=== PATIENT | male | born 1990 | race African-American/Black ===

== ENCOUNTER 2017-01-02 02:25 | Inpatient (IN) ==
[2017-01-02] MEDS ORDERED: cefTRIAXone 1,000 MG in SODIUM CHLORIDE 0.9% 100 ML IV STA (03:28)
--- NOTE | 2017-01-02 03:29 | Emergency Department Note ---
Junito Barreto Brittany, am scribing for, and in the presence of, Narda Glez DO 02:58. Newton Barreto Debra, DO, personally performed the services described in this documentation, ascribed by Nelly Wild in my presence, and it is both accurate and complete 329 . Arrival - Arrival Chief Complaint: Abscess Stated Complaint: bit by a spider ,swollen ED Nursing Triage Note: pt presented to triage ambulatory with limp with c/o possible spider bite to R thigh. also c/o fever x 1 day. pt denies drainage. redness and edema noted to R thigh Mode of Arrival: Ambulatory Limitations: No Limitations Source: Patient, RN Notes Reviewed Time Seen by Provider: 01/02/17 02:51 - History of Present Illness HPI Narrative: Mr. Cochran is a 26 y/o black male presenting to the ED with c/o abscess to the lateral right thigh with an onset of a day. Patient reports that he may have been bitten by a spider on his lateral right thigh. Over the course of the day he has began to have a fever, chills, and has noticed a redness and swelling to the right thigh. This area is tender and hot to touch. During triage patient was noted to have a fever of 101. He has no other complaint/pain. Onset (ago): day(s) (1) Consistency: constant Allergies/Adverse Reactions: Allergies Allergy/AdvReac Type Severity Reaction Status Date / Time No Known Allergies Allergy Verified 01/02/17 02:44 Review of System - Review of System 12 point system: reviewed and no additional remarkable complaints except as stated - Review of System Constitutional: Present: fever Eyes: Absent: vision change Head/Ears/Nose/Throat: Absent: nasal drainage, sore throat Respiratory: Absent: respiratory distress Cardiovascular: Absent: chest pain, palpitations Gastrointestinal: Absent: abdominal pain, nausea, vomiting, diarrhea, constipation Genitourinary male: Absent: urgency, dysuria, frequency Musculoskeletal: Absent: arm pain, back pain, leg pain, neck pain Skin: Present: as per HPI, lesions Neurological: Absent: headache Psychiatric: Absent: anxiety, depression Hematological/Lymphatic: Absent: easy bleeding, easy bruising Medical,Surgical,& Family Hx - Medical History Cardio: No history of: Cardiovascular Problems Psychological: No history of: Psychiatric Problems Neurology: No history of: Seizures, Neurological Problems Endocrine: No history of: Endocrine Problems Rheumatology: No history of;: Rheumatological Problems Respiratory: No history of: Respiratory Problems Genitourinary: History of: Problems Gastrointestinal: No history of: GI Problems Musculoskeletal: No history of: Musculoskeletal Problems Hematology: No history of: Blood Disorders Reproductive: 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) - Social History Smoking Status: Never smoker Frequency of Alcohol Use: None Type of Drug Use: None Exam Vital Signs: Vital Signs Temperature 100.1 F H 01/02/17 02:38 Pulse Rate 99 H 01/02/17 02:38 Respiratory Rate 18 01/02/17 02:38 Blood Pressure 119/65 01/02/17 02:38 O2 Sat by Pulse Oximetry 96 01/02/17 02:38 - General General appearance: alert, in no apparent distress - Head Head exam: Present: atraumatic, normocephalic, normal inspection - Eye Eye exam: Present: normal appearance, PERRL, EOMI - ENT ENT exam: Present: normal exam, normal oropharynx - Neck Neck exam: Present: normal inspection, full ROM, trachea midline - Chest Chest inspection: Present: normal inspection, symmetric chest wall rise - Respiratory Respiratory exam: Present: normal lung sounds bilaterally. Absent: rales, rhonchi, wheezes - Cardiovascular Cardiovascular exam: Present: regular rate, normal rhythm, normal heart sounds. Absent: murmur, rubs, gallop - Abdominal Exam Abdominal exam: Present: soft, normal bowel sounds. Absent: distention, tenderness - Extremities Exam Extremities exam: Present: full ROM, tenderness (lateral right thigh). Absent: normal inspection (palm sized area with surrounding erythema that is hot to touch noted to the lateral right thigh) - Back Exam Back exam: Present: normal inspection - Neurological Exam Neurological exam: Present: alert, oriented X3, CN II-XII intact. Absent: motor sensory deficit - Psychiatric Psychiatric exam: Present: normal affect, normal mood - Skin Skin exam: Present: warm, dry, other (palm sized area with surrounding erythema that is hot to touch noted to the lateral right thigh) Course Course Narrative: Dr Vaughan to admit Results - Labs CBC & BMP: 01/02/17 03:27 Lab Results: I have reviewed the patients labs Labs: Laboratory Tests 01/02/17 03:27 WBC 16.6 H RBC 5.14 Hgb 14.7 Hct 43.7 MCV 85.0 L Plt Count 241 Neut % (Auto) 80.2 H Lymph % (Auto) 9.8 L Neut # (Auto) 13.3 H Ziebach # (Auto) 1.4 H Disposition Clinical Impression: Abscess of skin or subcutaneous tissue Case discussed with: patient Disposition: Still a Patient Condition: Stable Time of Disposition: 04:42
[2017-01-02 03:51] LABS: Basophils # 0.1 10*3/uL (0.0-0.2); Basophils % 0.5 % (0.0-0.8); Eosinophils # 0.1 10*3/uL (0.0-0.87); Eosinophils % 0.5 % (0.00-10.9); Hematocrit 43.7 VOL% (42.0-52.0); Hemoglobin 14.7 GM/DL (14.0-18.0); Immature Granulocytes % 0.4 %; Immature Granulocytes Absolute 0.06 #; Lymphocytes # 1.6 10*3/uL (1.4-4.0); Lymphocytes % 9.8 % (21.2-54.2); Mean Corpuscular HGB Conc 33.6 GM/DL (32-36); Mean Corpuscular Hemoglobin 29 PG (27-34); Mean Platelet Volume 11.4 FL (9.6-12.0); Monocytes # 1.4 10*3/uL (0.11-0.8); Monocytes % 8.6 % (1.7-12.7); Neutrophils # 13.3 10*3/uL (1.4-7.4); Neutrophils % 80.2 % (38.7-73.9); Platelet Count 241 T/CUMM (130-400); Red Blood Count 5.14 MC/CUMM (3.8-5.5); Red Cell Distribution Width 12.6 % (9.3-17.3); White Blood Count 16.6 T/CUMM (4-12)
[2017-01-02] MEDS ORDERED: cefTRIAXone 1,000 MG VIAL ONE (03:54)
[2017-01-02] MEDS ORDERED: SODIUM CHLORIDE 0.9% 100 ML IV ONE (03:54)
--- NOTE | 2017-01-02 04:41 | Hospitalist History & Physical ---
Assessment and Plan (1) Cellulitis and abscess of right leg Status: Acute Assessment and plan: Our plan for this patient will be admission to the hospital with IV antibiotics. Need to follow-up on his chemistry that is not currently available. Patient's been started on Rocephin this should be adequate for this patient who has very limited health problems. Will consult a surgeon for further evaluation and possible I&D. Current Visit: Yes History of Present Illness Chief complaint: Swelling noted on thigh History of present illness: Mr. Cochran is a 26 year old male with no past medical history presents with chief complaint of abscess to right thigh. Patient reports that this also has been approximately 1 day. He recently moved and thinks that it was a spider bite. Began to have a fever noticed redness and swelling to the right thigh this evening. I was consulted to admit the patient to the emergency room. Patient reports that his son recently had an abscess that required drainage. Allergies Allergy/AdvReac Type Severity Reaction Status Date / Time No Known Allergies Allergy Verified 01/02/17 02:44 Medical,Surgical,& Family Hx - Medical History Cardio: No history of: Cardiovascular Problems Psychological: No history of: Psychiatric Problems Neurology: No history of: Seizures, Neurological Problems Endocrine: No history of: Endocrine Problems Rheumatology: No history of;: Rheumatological Problems Respiratory: No history of: Respiratory Problems Genitourinary: History of: Problems Gastrointestinal: No history of: GI Problems Musculoskeletal: No history of: Musculoskeletal Problems Hematology: No history of: Blood Disorders Reproductive: 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) - Surgical History Additional Surgical History: none - Family History Additional Family History: none - Social History Smoking Status: Never smoker Frequency of Alcohol Use: None Type of Drug Use: None 12 point system: reviewed and no additional remarkable complaints except as stated Exam - Constitutional Vitals: Period Temp Pulse Resp BP Sys/Pineda Pulse Ox Last 24 Hr 100.1 F-100.1 F 99-99 18-18 119-119/65-65 96 General appearance: normal weight - Head Head exam: Present: normal inspection - Eye Eye exam: Present: EOMI Pupils: Present: GENE - ENT ENT exam: Present: normal exam - Neck Neck exam: Present: normal inspection - Respiratory Respiratory exam: Present: clear to auscultation bilaterally - Cardiovascular Cardiovascular exam: Present: regular rate and rhythm - GI/Abdominal GI/Abdominal exam: Present: normal bowel sounds - Extremities Exam Extremities exam: Present: other (Patient has some erythema on the lateral aspect of his right thigh that is warm to touch) - Back Exam Back exam: Present: normal inspection - Neurological Exam Neurological exam: Present: alert, oriented X3 - Psychiatric Psychiatric exam: Present: normal affect, normal mood - Skin Skin exam: Present: normal color Results - Labs CBC & BMP: 01/02/17 03:27
[2017-01-02 04:46] LABS: Albumin 3.7 G/DL (3.4-5.0); Bilirubin,Total 0.7 MG/DL (0.2-1.0); Calcium 8.8 MG/DL (8.5-10.1); Osmolality,Calculated 274.8 MOS/KG (273-304); Potassium 4.4 MMOL/L (3.5-5.1); Total Protein 7.4 G/DL (6.4-8.3)
--- NOTE | 2017-01-02 09:04 | Event Note ---
Mr. Cochran is a 26 year old male with no past medical history admitted with the pain redness and swelling of right lateral thigh. He reported having symptoms started 2-3 days prior to admission. Started having fever last night prior to coming to the emergency room. He was started on IV antibiotics and is afebrile. He is on ceftriaxone which does not cover MRSA. Surgery consult was placed in the waiting recommendations. Since patient is afebrile now I would continue same antibiotics and wait for culture and sensitivity from the wound which was obtained according to patient. He had a white count elevated to 16.6. Repeat CBC for tomorrow is already in place.
--- NOTE | 2017-01-02 10:34 | General Surgery Consult Note ---
Assessment and Plan - Time spent with patient Time spent with patient: Greater than 30 minutes (1) Abscess of skin or subcutaneous tissue Status: Acute Assessment and plan: 01/02/2017 abscess right lateral thigh. He has significant tenderness and elevated white count. Plan to take him to the operating room today and do formal incision and drainage with excisional debridement. Of note, we recently treated the patient's 1-1/2-year-old son for MRSA abscess, so this is likely community-acquired MRSA. Current Visit: Yes History of Present Illness Chief complaint: Tender mass of right thigh History of present illness: Mr. Cochran is a 26 year old male Allergies Allergy/AdvReac Type Severity Reaction Status Date / Time No Known Allergies Allergy Verified 01/02/17 02:44 Medical,Surgical,& Family Hx - Medical History Cardio: No history of: Cardiovascular Problems Psychological: No history of: Psychiatric Problems Neurology: No history of: Seizures, Neurological Problems Endocrine: No history of: Endocrine Problems Rheumatology: No history of;: Rheumatological Problems Respiratory: No history of: Respiratory Problems Genitourinary: History of: Problems Gastrointestinal: No history of: GI Problems Musculoskeletal: No history of: Musculoskeletal Problems Hematology: No history of: Blood Disorders Reproductive: 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 His is present. ) - Head Head exam: Present: normal inspection - Eye Eye exam: Present: EOMI Pupils: Present: GENE - ENT ENT exam: Present: normal oropharynx Mouth exam: Present: normal voice, dry mucosa. Absent: oral lesion - Neck Neck exam: Present: trachea midline. Absent: lymphadenopathy, tenderness - Respiratory Respiratory exam: Present: clear to auscultation bilaterally - Cardiovascular Cardiovascular exam: Present: RRR - GI/Abdominal GI/Abdominal exam: Present: hypoactive bowel sounds, soft. Absent: distended, guarding, tenderness - Extremities Exam Extremities exam: Present: full ROM, other (Anterior, lateral right thigh with approximately 6-8 cm indurated area with a central focal 1-2 cm mass that is slightly fluctuant. Apparently this area had undergone attempted aspiration, and there is bloody drainage on his dressing, but I am unable to express any drainage with tender manipulation. It is erythematous about 10 cm centrally, ) . Absent: calf tenderness - Neurological Exam Neurological exam: Present: alert, oriented X3 Quality Measures - VTE Contraindication to Pharmacological VTE Prophylaxis: High Risk of Bleeding Results - Labs CBC & BMP: 01/02/17 03:27 01/02/17 04:06 Lab Results: I have reviewed the past 24 hour labs
[2017-01-02] MEDS ORDERED: BUPIVACAINE 0.25% 50 ML VIAL ONE (12:58)
[2017-01-02] MEDS ORDERED: PROPOFOL 200 MG/20 ML VIAL IV ONE (13:30)
[2017-01-02] MEDS ORDERED: ONDANSETRON 4 MG/2 ML VIAL ONE (13:30)
[2017-01-02] MEDS ORDERED: LIDOCAINE 1% 5 ML VIAL ONE (13:30)
[2017-01-02] MEDS ORDERED: fentaNYL 100 MCG/2 ML VIAL ONE (14:07)
[2017-01-02] MEDS ORDERED: MIDAZOLAM 2 MG/2 ML VIAL ONE (14:07)
[2017-01-02] MEDS ORDERED: ONDANSETRON 4 MG/2 ML VIAL IV PRN (14:16)
[2017-01-02] MEDS ORDERED: MEPERIDINE 25 MG/1 ML VIAL ONE (14:37)
[2017-01-02] MEDS ORDERED: MEPERIDINE 25 MG/1 ML VIAL IV PRN (14:39)
[2017-01-02] MEDS ORDERED: CHLORHEXIDINE 4% SOLN 118 ML BOTTLE TOP ONE (15:13)
--- NOTE | 2017-01-02 15:45 | Operative Note ---
Date of procedure: 01/02/17 Pre-op diagnosis: Abscess of right thigh Post-op diagnosis: same Procedure: Incision and drainage with excisional debridement of right thigh. Brief summary this 26-year-old male patient presented to the emergency room last evening after a 4 day history of tenderness and increased swelling of the right lateral thigh. He first noticed what he termed an insect bite on the anterior lateral aspect of the right thigh on evening. His main symptom that time was itching, however it rapidly began to become tender with increased pressure over the weekend. It became so uncomfortable he could not rest, and he presented to the emergency room, where attempted aspiration yielded apparently no fluid. He was at that point admitted, placed on IV antibiotics, and we were consulted. He was found to have an 8 x 9 cm indurated mass with focal erythematous change and a central fluctuant area of about 2-3 cm. Of note the patient's [id number] son was also noted to have had a recent I&D with drainage of abscess of the perineum by Dr. Pastrana approximately 2 weeks ago. This was reported as MRSA, and the child has recovered well without any complications. The father has been directly involved in the child's care, and this is a significant potential for transmitting the infection. After discussing the likelihood that this was a fluid accumulation with abscess and quite possibly MRSA, we offered surgical I&D with debridement, and the patient agreed. With the patient supine position and under general LMA anesthesia, the right anterior lateral thigh was prepped with Betadine and draped in sterile fashion. After formal timeout was obtained the skin around the mass area in approximately 6 x 6 cm field block was achieved using 1% lidocaine mixed half- and-half with 0.25% Marcaine. Purulent material spontaneously drained from the site of previous aspiration attempt. Once the area was infiltrated and incision was made approximately 2 cm onto the fluctuant area, we immediately encountered approximately 10 cc of purulent material. This drained easily from the abscess cavity, which did appear to go a bit deeper than was first realized. The area was swabbed for cultures aerobically and anaerobically. Hemostat was used to gently explore the area and widen it, and then the incision was then carried further down through the skin and subcu and fatty tissue, until we could see the vastus lateralis muscle. The muscle was not entered, just it identified as a landmark, and then explored digitally for deeper pocket. We found no deeper pocket and then began to sweep the entire length of the indurated area digitally. There were no deeper pockets felt at that point and we had explored the entire indurated diameter, we felt that the area had been adequately opened, and there was no deeper cavity found. Once we felt the area had been adequately drained, the cavity was then irrigated with approximately 200 mL of warm sterile saline, and then expect inspected for bleeding. There were a few areas of superficial bleeding in the subcu and fatty tissue, which were controlled easily with electrocautery. The area was again inspected for bleeding, in particular around the muscle area, and none was seen. We then took a post surgical measurement of the wound cavity which was now 4 cm x 1 cm x 2 cm in depth. Additional lidocaine mixed [id number] with Marcaine was used in the superficial and subcu for pain relief. At that point we took a Dakin's wet Kerlix fluff, soaked it with a good deal of the Dakin's material, and loosely packed into the cavity, approximately one half of the gauze, and then laid the remainder of the gauze over the top of the subcu and skin. A second Dakin's wet gauze was placed over this, followed by several bulky dry gauze this is secondary dressings, then an ABD pad, and was secured with a 6 inch Chandra bandage. No drains were left. Estimated blood loss was 10 cc. The patient was then taken to the recovery room in stable and satisfactory condition. There were no immediate complications. Anesthesia: other (LMA) Surgeon / Physician: Hallie Gates Estimated blood loss: other (10 mL) Specimens: other (Culture swabs) Condition: stable Disposition: PACU Results - Labs CBC & BMP: 01/02/17 03:27 01/02/17 04:06
[2017-01-02] MEDS: HYDROmorphone 2 MG/1 ML VIAL IV PRN ×2 (16:08→21:18)
[2017-01-02] MEDS: CLINDAMYCIN INJ 600 MG in PREMIX 1 EACH IV SCH ×2 (16:29→21:17)
--- NOTE | 2017-01-03 00:37 | Anesthesia Post-Op ---
Anesthesia Post OP - Post Ansesthetic Evaluation Patient seen in post op: Yes Resp: within normal limits CV: within normal limits Mental: within normal limits Temp: within normal limits [id number]: within normal limits Nausea and Vomiting: within normal limits Pain: within normal limits
[2017-01-03] MEDS: cefTRIAXone 1,000 MG in SODIUM CHLORIDE 0.9% 100 ML IV SCH (03:18)
[2017-01-03] MEDS: HYDROmorphone 2 MG/1 ML VIAL IV PRN ×2 (04:34→07:53)
[2017-01-03] MEDS: CLINDAMYCIN INJ 600 MG in PREMIX 1 EACH IV SCH ×3 (04:34→20:20)
[2017-01-03 04:46] LABS: Basophils # 0.1 10*3/uL (0.0-0.2); Basophils % 0.3 % (0.0-0.8); Eosinophils # 0.1 10*3/uL (0.0-0.87); Eosinophils % 0.3 % (0.00-10.9); Hematocrit 40.4 VOL% (42.0-52.0); Hemoglobin 13.1 GM/DL (14.0-18.0); Immature Granulocytes % 0.5 %; Immature Granulocytes Absolute 0.07 #; Lymphocytes # 2.5 10*3/uL (1.4-4.0); Lymphocytes % 16.4 % (21.2-54.2); Mean Corpuscular HGB Conc 32.4 GM/DL (32-36); Mean Corpuscular Hemoglobin 28 PG (27-34); Mean Corpuscular Volume 86.3 FL (87-102); Mean Platelet Volume 10.3 FL (9.6-12.0); Monocytes # 1.9 10*3/uL (0.11-0.8); Monocytes % 12.5 % (1.7-12.7); Neutrophils # 10.7 10*3/uL (1.4-7.4); Platelet Count 279 T/CUMM (130-400); Red Blood Count 4.68 MC/CUMM (3.8-5.5); Red Cell Distribution Width 12.5 % (9.3-17.3); White Blood Count 15.4 T/CUMM (4-12)
[2017-01-03 05:14] LABS: Calcium 8.4 MG/DL (8.5-10.1); Potassium 4.1 MMOL/L (3.5-5.1)
[2017-01-03 05:20] LABS: Albumin 3.3 G/DL (3.4-5.0); Bilirubin,Total 1.8 MG/DL (0.2-1.0); Calcium 8.6 MG/DL (8.5-10.1); Osmolality,Calculated 268.1 MOS/KG (273-304); Potassium 4.1 MMOL/L (3.5-5.1); Total Protein 6.8 G/DL (6.4-8.3)
[2017-01-03] MEDS: BACITRACIN OINT 0.9 GM PACK TOP SCH (10:08)
[2017-01-03] MEDS: SODIUM HYPOCHLORITE 0.25% IRRIG 473 ML BOTTLE TOP SCH (10:09)
--- NOTE | 2017-01-03 11:59 | General Surgery Progress Note ---
Assessment and Plan - Time spent with patient Time spent with patient: Less than 30 minutes (1) Abscess of skin or subcutaneous tissue Status: Acute Assessment and plan: 01/02/2017 abscess right lateral thigh. He has significant tenderness and elevated white count. Plan to take him to the operating room today and do formal incision and drainage with excisional debridement. Of note, we recently treated the patient's 1-1/2-year-old son for MRSA abscess, so this is likely community-acquired MRSA. 01/03/2017. Stable postop I&D of right lateral thigh abscess. We have emerging gram-positive cocci, so we favor staying on clindamycin. His is a nurse & will be taught to perform wound care. We will recheck his CBC in the morning, and could discharge if his white count drops to normal. Current Visit: Yes Subjective Patient reports: Present: still having pain, pain is less. Absent: nausea Exam - Constitutional Vitals: Period Temp Pulse Resp BP Sys/Pineda Pulse Ox Last 24 Hr 97.0 F-100.5 F 73-91 16-20 100-150/47-82 95-100 General appearance: mild distress, other (He is moderately uncomfortable & requests parenteral pain medication during dressing change.) - Respiratory Respiratory exam: Present: clear to auscultation bilaterally - Cardiovascular Cardiovascular exam: Present: RRR - GI/Abdominal GI/Abdominal exam: Present: other (Right lateral thigh incision is clean. There is no active bleeding. No further purulent drainage. The induration is much less. Erythema is clearing and now confined to a 2-3 cm area adjacent to the incision.) Results - Labs CBC & BMP: 01/03/17 04:14 01/03/17 04:15 Lab Results: I have reviewed the past 24 hour labs (Persistent leukocytosis with white count 15,000. His H&H is stable micro shows emerging gram-positive cocci on PHYSICAL THERAPY ATTENDANT.) Quality Measures - VTE Contraindication to Pharmacological VTE Prophylaxis: High Risk of Bleeding
[2017-01-03] MEDS ORDERED: ONDANSETRON 4 MG/2 ML VIAL IV ONE (12:40)
--- NOTE | 2017-01-03 12:44 | Hospitalist Progress Note ---
Assessment and Plan (1) Cellulitis and abscess of right leg Status: Acute Assessment and plan: We will continue clindamycin but DC Rocephin as culture so far showed gram- positive cocci. Adjust the antibiotic if required. WBC count better but he still elevated. For the nausea I have given him dose of Zofran and stopped Dilaudid he already has ordered for hydrocodone/acetaminophen as needed Current Visit: Yes Hospitalist: Subjective Interval history: Mr. Cochran is a 26 year old male with no past medical history admitted with the pain redness and swelling of right lateral thigh. He reported having symptoms started 2-3 days prior to admission. Started having fever night prior to coming to the emergency room. He was started on IV antibiotics ceftriaxone. Patient was seen by Dr. Gates and underwent incision and drainage with excisional debridement of right thigh. Noted on clindamycin in addition to some Rocephin. Pain is better but patient say he feels nauseated every time they gave him Dilaudid. He believes his pain is better and can be controlled with p.o. medications he has been afebrile Exam - Constitutional Vitals: Period Temp Pulse Resp BP Sys/Pineda Pulse Ox Last 24 Hr 97.0 F-100.5 F 73-91 16-20 100-150/47-82 95-100 General appearance: no acute distress - Head Head exam: Present: normal inspection, normocephalic - Eye Eye exam: Present: EOMI Pupils: Present: GENE, normal accommodation - Respiratory Respiratory exam: Present: clear to auscultation bilaterally. Absent: rales, rhonchi - Cardiovascular Cardiovascular exam: Present: regular rate and rhythm. Absent: tachycardia - GI/Abdominal GI/Abdominal exam: Present: normal bowel sounds, soft. Absent: distended, tenderness - Extremities Exam Extremities exam: Present: other (Dressing on right thigh post surgery and no soaking or bleeding noted). Absent: edema - Neurological Exam Neurological exam: Present: alert, oriented X3 Results - Labs CBC & BMP: 01/03/17 04:14 01/03/17 04:15 Lab Results: I have reviewed the past 24 hour labs Quality Measures - VTE Contraindication to Pharmacological VTE Prophylaxis: High Risk of Bleeding
[2017-01-04] MEDS: cefTRIAXone 1,000 MG in SODIUM CHLORIDE 0.9% 100 ML IV SCH (02:32)
[2017-01-04] MEDS: CLINDAMYCIN INJ 600 MG in PREMIX 1 EACH IV SCH (05:14)
[2017-01-04 06:00] LABS: Basophils # 0.1 10*3/uL (0.0-0.2); Basophils % 0.8 % (0.0-0.8); Eosinophils # 0.3 10*3/uL (0.0-0.87); Eosinophils % 2.9 % (0.00-10.9); Hematocrit 41.5 VOL% (42.0-52.0); Hemoglobin 13.4 GM/DL (14.0-18.0); Immature Granulocytes % 0.5 %; Immature Granulocytes Absolute 0.05 #; Lymphocytes # 2.5 10*3/uL (1.4-4.0); Lymphocytes % 24.8 % (21.2-54.2); Mean Corpuscular HGB Conc 32.3 GM/DL (32-36); Mean Corpuscular Hemoglobin 28 PG (27-34); Mean Platelet Volume 10.4 FL (9.6-12.0); Monocytes # 1.3 10*3/uL (0.11-0.8); Monocytes % 12.6 % (1.7-12.7); Neutrophils # 5.8 10*3/uL (1.4-7.4); Neutrophils % 58.4 % (38.7-73.9); Platelet Count 290 T/CUMM (130-400); Red Blood Count 4.77 MC/CUMM (3.8-5.5); Red Cell Distribution Width 12.4 % (9.3-17.3); White Blood Count 9.9 T/CUMM (4-12)
--- NOTE | 2017-01-04 10:42 | General Surgery Progress Note ---
Assessment and Plan - Time spent with patient Time spent with patient: (White count is now normal. H&H stable.) (1) Abscess of skin or subcutaneous tissue Status: Acute Assessment and plan: 01/02/2017 abscess right lateral thigh. He has significant tenderness and elevated white count. Plan to take him to the operating room today and do formal incision and drainage with excisional debridement. Of note, we recently treated the patient's 1-1/2-year-old son for MRSA abscess, so this is likely community-acquired MRSA. 01/03/2017. Stable postop I&D of right lateral thigh abscess. We have emerging gram-positive cocci, so we favor staying on clindamycin. His is a nurse & will be taught to perform wound care. We will recheck his CBC in the morning, and could discharge if his white count drops to normal. 01/04/2017. Patient is progressing well post I&D of right anterior lateral thigh abscess. Okay with surgery if the switch to p.o. clindamycin and continue this for another 7-10 days. He could be discharged home at any point. He will need local care, with twice daily showers, irrigations with half- strength Dakin solution, and Dakin's soaked gauze packing into the wound cavity. His is an RN, and she is well able to handle his wound care. We will plan to follow him in our office in about 1 week, and if the wound cultures negative we could perform delayed closure in the office setting. Current Visit: Yes Subjective Patient reports: Present: feels better, pain is less, tolerating a regular diet , other (Tolerating dressing changes well) Exam - Constitutional Vitals: Period Temp Pulse Resp BP Sys/Pineda Pulse Ox Last 24 Hr 97.9 F-98.7 F 62-84 12-20 102-122/47-71 93-99 General appearance: normal weight, no acute distress - Extremities Exam Extremities exam: Present: other (Right anterior lateral thigh wound is clean without active bleeding. There is no purulence. Face is beefy red. It is moderately tender to touch, however the induration is resolving. The erythema has now cleared.) Results - Labs CBC & BMP: 01/04/17 05:03 01/03/17 04:15 Lab Results: I have reviewed the past 24 hour labs Quality Measures - VTE Contraindication to Pharmacological VTE Prophylaxis: High Risk of Bleeding
[2017-01-04] MEDS: BACITRACIN OINT 0.9 GM PACK TOP SCH (10:55)
[2017-01-04] MEDS: SODIUM HYPOCHLORITE 0.25% IRRIG 473 ML BOTTLE TOP SCH (10:56)
--- NOTE | 2017-01-04 11:22 | Discharge Summary ---
Hospital Course - Hospital Course Hospital Course: Mr. Cochran is a 26 year old male with no past medical history admitted with the pain redness and swelling of right lateral thigh. He reported having symptoms started 2-3 days prior to admission. Started having fever night prior to coming to the emergency room. He was started on IV antibiotics ceftriaxone. Patient was seen by Dr. Gates and underwent incision and drainage with excisional debridement of right thigh. . Pain is better but patient say he feels nauseated every time they gave him Dilaudid. It was discontinued and he felt better with resolution of nausea . He was initially treated with ceftriaxone but later clindamycin was added. His wound culture did show MRSA sensitive to clindamycin. His wound looked better and surgery service had says okay for him to discharge and will follow up in 1 week. His is RN we will will help with the dressing change. I have written the prescription for clindamycin and [place] at the lower strength for pain control as patient does not seem to have a low threshold for pain. He will follow-up with the Dr. Pastrana office next week return to the ER as needed Diagnosis - Discharge Diagnosis (1) Cellulitis and abscess of right leg Status: Acute Discharge Plan - Discharge Data Disposition: Disch To Home/Self Care Discharge Diet: advance to your usual diet Activity: resume usual activities as tolerated - Discharge Medications New Clindamycin HCl [Clindamycin Cap] 300 mg PO Q6HR #40 capsule Hydrocodone/Acetaminophen [Hydrocodon-Acetaminophen 5-325] 1 each PO Q8HR PRN #20 tablet PRN Reason: Pain Sodium Hypochlorite 0.25% Irr [Dakins 1/2 Strength 0.25% Soln] 1 applic TOP DAILY applic - Follow Up or Referral - Forms/Instructions Exam - Constitutional Vitals: Period Temp Pulse Resp BP Sys/Pineda Pulse Ox Last 24 Hr 97.9 F-98.7 F 62-84 12-20 102-122/47-71 93-99 General appearance: no acute distress - Head Head exam: Present: normal inspection, normocephalic - Eye Eye exam: Present: EOMI Pupils: Present: GENE, normal accommodation - Respiratory Respiratory exam: Present: clear to auscultation bilaterally. Absent: rales, rhonchi - Cardiovascular Cardiovascular exam: Present: regular rate and rhythm. Absent: tachycardia - GI/Abdominal GI/Abdominal exam: Present: normal bowel sounds, soft. Absent: distended, tenderness - Extremities Exam Extremities exam: No lower extremity edema. Right thigh wound was dressed it was removed by surgery team and I was with them and saw the wound surgical wound look clean there is little induration around that. - Neurological Exam Neurological exam: Present: alert, oriented X3 Discharge Results Labs on day of discharge: Labs from last 24 hours 01/04/17 05:03 WBC 9.9 D RBC 4.77 Hgb 13.4 L Hct 41.5 L MCV 87.0 MCH 28 MCHC 32.3 RDW 12.4 Plt Count 290 MPV 10.4 Neut % (Auto) 58.4 Lymph % (Auto) 24.8 [place] % (Auto) 12.6 Eos % (Auto) 2.9 Baso % (Auto) 0.8 Neut # (Auto) 5.8 Lymph # (Auto) 2.5 [place] # (Auto) 1.3 H Eos # (Auto) 0.3 Baso # (Auto) 0.1 Immature Gran % 0.5 Nucleated RBC % 0.0 Immature Gran # 0.05 Nucleated RBCs # 0.00 DS: Provider Date of admission: 01/02/17 04:31 Primary care physician: . No PCP Attending physician on admission: Anil Vaughan MD Consults: 01/02/17 04:46 Consult to Physician [CONS] Routine Comment: possible i and d of abscess Consulting Provider: Faustino Pastrana Consulting Provider Notified: Yes When should Consulting Provider be notified: Now Consult to Specialist Group: Surgery When should Consulting Provider be notified: In am Person Notified: maggie quiñones Date Notified: 01/02/17 Time Notified: 08:48 01/02/17 10:29 Consult to Anesthesiology [CONS] Routine Consulting Provider: Reason for Anesthesiology: Pre-op Clearance 01/02/17 14:16 Consult to Wound Care - [place] [CONS] Routine Reason for Wound Care: Wound Care Management Consult Comment: Teach family Discharging clinician: Sorin Carpenter MD
[2017-01-04 11:45] VITALS: BP 119/71
== END 2017-01-04 13:17 | disposition home or self-care (01) | DRG 572 ==
LOC: N.ED 02:25 → N.EDINP 04:31 → SUATTDRO 04:31 → N.EDINP 05:21 → N.3E 05:35
PROVIDERS: ADMIT Internal Medicine; ATTEND Internal Medicine